=== PATIENT | female | born 1965 ===

== ENCOUNTER 2025-09-01 06:20 | Day surgery (SDC) | payer BC, SELFPAY | END 2025-09-01 12:00 | disposition home or self-care (01) | LOC: GI 06:20 | PROVIDERS: ATTENDING PHYSICIAN Internal Medicine Gastroenterology | DX: Z12.11 Encounter for screening for malignant neoplasm of colon (principal); K64.9 Unspecified hemorrhoids; D17.5 Benign lipomatous neoplasm of intra-abdominal organs; D12.3 Benign neoplasm of transverse colon; D12.2 Benign neoplasm of ascending colon; K63.5 Polyp of colon | CPT/HCPCS: 45385; 45380; 88305 ==